=== PATIENT | female | born 1995 ===

== ENCOUNTER 2019-02-12 13:25 | Emergency (ER) | payer SELFPAY ==
--- NOTE | 2019-02-12 15:06 | UC ---
Skin Complaint HPI - HPI Summary HPI Summary: Pt states she has a bug bite in buttock area approx 02/09/19. Pt states bite is painful. Pt complains of subjective fever, swollen lymph node and feeling like her heart rate is elevated. - History of Current Complaint Chief Complaint: UCSkin Time Seen by Provider: 02/12/19 14:40 Stated Complaint: BUG BITE Hx Obtained From: Patient Hx Last Menstrual Period: 02/05/19 Onset/Duration: Sudden Onset, Lasting Days Pain Intensity: 5 Character: Redness, Raised, Painful Aggravating Factor(s): Touch - Allergy/Home Medications Allergies/Adverse Reactions: Allergies Allergy/AdvReac Type Severity Reaction Status Date / Time No Known Allergies Allergy Verified 02/12/19 14:26 Home Medications: Home Medications NK [No Home Medications Reported] 02/12/19 [History Confirmed 02/12/19] PMH/Surg Hx/FS Hx/Imm Hx - Surgical History Surgical History: None - Social History Alcohol Use: Occasionally Substance Use Type: None Smoking Status (MU): Heavy Every Day Tobacco Smoker Amount Used/How Often: 1/2ppd Household Exposure Type: Cigarettes Review of Systems All Other Systems Reviewed And Are Negative: Yes Skin: Positive: Rash Is Patient Immunocompromised?: No Physical Exam Triage Information Reviewed: Yes Appearance: Well-Appearing, Well-Nourished, Pain Distress Vital Signs: Initial Vital Signs Temp 99.1 F 02/12/19 14:26 Pulse 124 02/12/19 14:26 Resp 99 02/12/19 14:26 BP 109/78 02/12/19 14:26 Pulse Ox 100 02/12/19 14:26 Vital Signs Reviewed: Yes Eye Exam: Normal ENT Exam: Normal Dental Exam: Normal Neck exam: Normal Respiratory Exam: Normal Respiratory: Positive: Chest non-tender, Lungs clear, Normal breath sounds Cardiovascular Exam: Normal Cardiovascular: Positive: RRR, No Murmur, Pulses Normal Abdominal Exam: Normal Bowel Sounds: Positive: Present Musculoskeletal Exam: Normal Neurological Exam: Normal Psychological Exam: Normal Skin: Positive: Other - multiple small pustules on bilateral buttocks and down the left leg Course/Dx - Course Course Of Treatment: hx obtained, exam performed ,meds reviewed, treated for folliculits on buttocks - Differential Diagnoses - Skin Complaint Differential Diagnoses: Abscess, Tick Born Illness - Diagnoses Provider Diagnosis: Folliculitis Discharge - Sign-Out/Discharge Documenting (check all that apply): Patient Departure All imaging exams completed and their final reports reviewed: No Studies - Discharge Plan Condition: Stable Disposition: HOME Patient Education Materials: Folliculitis (ED) Referrals: No Primary Care Phys,NOPCP [Primary Care Provider] - Additional Instructions: 1. use the medication as prescribed. 2. Warm water soaks daily 3. Use a benzoly peroxcide wash in the shower to clean the skin. 4. FOllow up if not improving. - Billing Disposition and Condition Condition: STABLE Disposition: Home
== END 2019-02-12 15:30 | disposition home or self-care (01) ==
LOC: UCEAST 13:25
DX: F17.210 Nicotine dependence, cigarettes, uncomplicated (principal)
CPT/HCPCS: 99202; G0463